=== PATIENT | male | born 1980 | race Two or more races ===

== ENCOUNTER → 2020-10-16 16:04 | Outpatient (BNVA) | payer OTHER, SELFPAY | PROVIDERS: PCP Nurse Practitioner Family; Referring Provider Nurse Practitioner Family; Visit Provider Surgery | DX: Z01.818 Encounter for other preprocedural examination (principal); D17.0 Benign lipomatous neoplasm of skin and subcutaneous tissue of head, face and neck | CPT/HCPCS: 99202 ==

== ENCOUNTER 2020-10-31 14:09 | Outpatient (REF) | payer OTHER, SELFPAY ==
[2020-10-31 14:15] VITALS: BP 130/64; PULSE 73; RESP 16; TEMP 36.3; O2SAT 98
[2020-10-31 14:20] VITALS: BMI 18.5
[2020-10-31 15:10] VITALS: BP 123/69; PULSE 66; RESP 16; O2SAT 99
--- NOTE | 2020-10-31 15:13 | W.PM.OPN ---
Operative Note Operative Note Date of Service: 10/31/20 Narrative: Preop diagnosis: Scalp cyst Postop diagnosis: Scalp cyst Procedure: Excision of scalp cyst under local anesthesia Surgeon: Diego Lares Patient is a 32-year-old male with note of a cystic mass on the scalp about 2 cm in size, well-defined, on the right right occipital area. He understood the technique of excision under local anesthesia. He was aware of the risks, benefits, and alternatives. He was brought to the minor procedure room. He was placed prone with the head turned to the right toexpose the area of the mass. This area was prepped and draped. Lidocaine 1% was used for local anesthesia. I made an incision on the skin overlying this cyst using a blade 15. This was carried down through the full-thickness skin subcutaneous fat with sharp dissection using blade 15 as well of fine scissors. A cyst capsule was then visualized and I sharply dissected this off of the rest of subcutaneous layer all the way posteriorly until this was delivered and sent as specimen. This actually decompressed during the procedure. This cyst diameter was about 2 cm There was note of significant oozing from the subcutaneous layer of the scalp. This actually note of a particular bleeding vessel which I clamp. I closed the incision with full-thickness nylon 3 0 in simple terms sutures and applied multiple figure-eight hemostatic sutures to the bleeding area after the was removed. There was note of good hemostasis at the end I applied bacitracin dressings. The procedure was then completed The patient tolerated procedure well. There were no complication noted. Estimated blood loss about 30 cc. The patient was given wound care instructions through an systems applications programming lead. He will be seen for follow-up in the office for removal sutures.
--- NOTE | 2020-10-31 15:18 | PM.OP ---
Brief Operative Note Date of Service: 10/31/20 Pre-op diagnosis: scalp cyst Post-op diagnosis: same Procedure: excision of scalp cyst under local anesthesia Surgeon: Diego Lares MD Anesthesia: local Was an Press Hand Supervisor used for this Procedure?: No Estimated blood loss (mL): 30 Pathology: other ( scalp cyst) Condition: stable Disposition: other ( home)
== END 2020-10-31 14:10 | disposition home or self-care (01) ==
LOC: HO.MS 14:09
PROVIDERS: Visit Provider Surgery
PROC: (CPT 11422; principal; 2020-10-31 13:50)
DX: L72.0 Epidermal cyst (principal); R58 Hemorrhage, not elsewhere classified
CPT/HCPCS: 11422; 88305

== ENCOUNTER → 2020-11-11 14:19 | Outpatient (BNVA) | payer OTHER, SELFPAY | PROVIDERS: Visit Provider Surgery | DX: Z48.817 Encounter for surgical aftercare following surgery on the skin and subcutaneous tissue (principal); Z87.2 Personal history of diseases of the skin and subcutaneous tissue | CPT/HCPCS: 99212 ==

== ENCOUNTER → 2021-03-06 10:40 | Outpatient (BNVA) | payer OTHER, SELFPAY | PROVIDERS: PCP Nurse Practitioner Family; Referring Provider Nurse Practitioner Family; Visit Provider Surgery | DX: L72.9 Follicular cyst of the skin and subcutaneous tissue, unspecified (principal) | CPT/HCPCS: 99212 ==